=== PATIENT | male | born 1955 | race Caucasian/White ===

== ENCOUNTER 2018-09-01 07:37 | Day surgery (SDC) | payer MEDICARE, BC ==
[~2018-09-01 07:37] MED LIST: DEXAMETHASONE 20 MG/5 ML (4 MG/ML SOL) ONE; FENTANYL 100MCG/2ML SOL ONE; ONDANSETRON HCL 4 MG/2 ML SOL ONE; PROPOFOL 500 MG/50 ML EMU IV ONE
[2018-09-01] MEDS ORDERED: BUPIVACAINE/EPI 0.5% 10 ML SOL INFIL ONE (08:14)
[2018-09-01] MEDS ORDERED: CEFAZOLIN SODIUM 1 GM PDS ONE (08:50)
[2018-09-01] MEDS ORDERED: PROPOFOL 10 MG/ML 200 MG/20 ML EMU IV ONE (08:57)
[2018-09-01 09:33] VITALS: RESP 16
[2018-09-01] MEDS ORDERED: KETOROLAC TROMETHAMINE 30 MG/ML SOL ONE (10:08)
[2018-09-01 12:13] VITALS: O2SAT 94
[2018-09-01 12:55] VITALS: BP 136/85; PULSE 77; TEMP 97.5
== END 2018-09-01 12:50 | disposition home or self-care (01) | DRG 951 ==
LOC: SURG 07:37
PROVIDERS: ATTEND Surgery
DX: Z12.11 Encounter for screening for malignant neoplasm of colon (principal); K42.9 Umbilical hernia without obstruction or gangrene; Z86.010 Personal history of colon polyps
CPT/HCPCS: 49585; G0105; J0330; J0690; J1100; J1885; J2405; J3010; A6402; C1781; J2704; J3490